=== PATIENT | male | born 1990 | race Caucasian/White ===

== ENCOUNTER 2022-05-31 12:34 | Emergency (ER) | payer OTHER, SELFPAY ==
[2022-05-31 12:50] VITALS: PULSE 87; RESP 18; TEMP 36.7; O2SAT 98; BMI 28.5
--- NOTE | 2022-05-31 13:18 | ED_ITS ---
HPI - Psych General Chief Complaint: Psychiatric Symptoms Stated Complaint: sent from [facility]. need evaluation Time Seen by Provider: 05/31/22 13:18 Source: patient Mode of arrival: ambulatory Limitations: no limitations History of Present Illness HPI Narrative: sent by partial program to see if someone can help get him on medications, does not have SI/HI/AH/VH. complaint: feels depressed (asking for medications) Onset (ago): week(s) Duration: intermittent History of same: Yes Relieving factors: none Exacerbating factors: medication Context: not taking psychiatric medications Associated psychiatric symptoms: depression Associated symptoms: denies other symptoms Treatments prior to arrival: none Related Data Allergies Allergy/AdvReac Type Severity Reaction Status Date / Time No Known Allergies Allergy Verified 05/31/22 12:49 Review of Systems Review of Systems: Constitutional : No Fever, No Chills ENT/Mouth : No Ear Pain, No Nasal Congestion, No sore throat Eyes: No Eye Pain, No Swelling, No Redness Cardiovascular : No Chest Pain, No SOB Respiratory : No Cough, No Sputum, No Dyspnea Gastrointestinal : No Nausea, No Vomiting, No Diarrhea, No Hematochezia, No Melena Genitourinary : No Dysuria, No Urinary Frequency, No Hematuria Musculoskeletal : No Myalgias Skin : No Skin Lesions, No rash Neuro : No Weakness, No Numbness, No Paresthesias, No Dizziness, No Headache Psych : positive Anxiety, positive Depression, no SI/HI, no AH/VH Heme/Lymph: No Lymphadenopathy Endocrine : No Polyuria, No Polydipsia All other systems reviewed and are negative [facility], [facility] Past Medical History Attestation statement: The following information was validated with the patient. Medical History ADD (attention deficit disorder) Depression Social History Social History (Updated 05/31/22 @ 13:41 by Val Amin DO) Patient Tobacco Use Status: Never used Tobacco Substance Use Type: Marijuana Advance Directives: No Advance Directives Information Provided: Yes Physical Exam Vital Signs: Vital Signs: Last Vital Signs Temp 98.1 F 05/31/22 12:50 Pulse 87 05/31/22 12:50 Resp 18 05/31/22 12:50 Pulse Ox 98 05/31/22 12:50 O2 Del Method 05/31/22 12:50 BMI result Body Mass Index 28.5 Appearance: Alert. Oriented X3. No acute distress. Calm and cooperative Eyes: Pupils equal, round and reactive to light. ENT: Pharynx normal. Neck: Normal inspection. Neck supple. CVS: Pulses normal. Respiratory: No respiratory distress. Abdomen: atraumatic Skin: Skin warm and dry. Normal skin color. Extremities: No lower extremity edema. Neuro: Oriented X 3. No motor deficit. No sensory deficit. MDM - Psych MDM Narrative Medical decision making narrative: 31 yo male with hx of depression ADD was on vyvanse took himself off due to side effects, was hospitalized for depression - has no SI/HI no delusions. Sent to ED from [facility] for medications. At this time he [facility] his GF is here as well and she notes they just need a provider to start medications after talking to CARE team the best course of action is to send to walk in [facility] clinic for urgent care appointment in [place] to get urgent care appointment patient and girlfriend agree to this plan. Discharge Plan Discharge Clinical Impression: Depression Qualifiers: Depression Type: unspecified Qualified Code(s): F32.A - Depression, unspecified Patient Disposition: Home, Self-Care Instructions: Depression (ED) Additional Instructions: return to ED for any worsening symptoms or concerns please go to the [facility] office on [address] in [place] Stand Alone Forms: Work/School Release
--- NOTE | 2022-05-31 13:30 | PC.NURSE ---
Pt arrives ambulatory to Pod- seeking partial hospitalization program and medication change from Vyvannse due to increasing ancger. Pt was recently admitted on APT2. pt denies SI/HI/AV hallucinations. Reportedly does not need inpatient hospitalization. Care Team and Dr. Amin fact finding at this time. Deffering changing over process- Pt able to contract for safety. Per Dr. Amin, pt will go to [facility] office on [address] for Crisis assessment and referral to Psych Urgent care
== END 2022-05-31 13:43 | disposition home or self-care (01) ==
PROVIDERS: Emergency Provider Emergency Medicine
DX: F32.A Depression, unspecified (principal)
CPT/HCPCS: 99283; 99285